=== PATIENT | female | born 1975 | race Asian ===

== ENCOUNTER 2018-05-06 12:36 | Outpatient (CLI) | payer OTHER | END 2018-05-06 19:19 | disposition home or self-care (01) | LOC: MAMMO 12:36 | DX: Z12.31 Encounter for screening mammogram for malignant neoplasm of breast (principal) ==

== ENCOUNTER 2018-05-25 12:45 | Outpatient (CLI) | payer OTHER | END 2018-05-25 22:29 | disposition home or self-care (01) | LOC: MAMMO 12:45 | DX: R92.8 Other abnormal and inconclusive findings on diagnostic imaging of breast (principal) ==

== ENCOUNTER 2018-06-10 10:01 | Outpatient (CLI) | payer OTHER ==
[~2018-06-10] VITALS: Ht 162.6 cm; Wt 77.1 kg
== END 2018-06-10 20:33 | disposition home or self-care (01) ==
LOC: US 10:01
DX: R92.8 Other abnormal and inconclusive findings on diagnostic imaging of breast (principal)